=== PATIENT | female | born 1940 | race Caucasian/White ===

== ENCOUNTER → 2023-12-31 11:26 | Outpatient (REF) | payer OTHER, SELFPAY | LOC: WDC 11:26 | PROVIDERS: ATTENDING PHYSICIAN Nurse Practitioner Family; FAMILY PHYSICIAN Student in an Organized Health Care Education/Training Program | DX: Z12.31 Encounter for screening mammogram for malignant neoplasm of breast (principal) | CPT/HCPCS: 77063; 77067 ==

== ENCOUNTER 2024-08-18 21:58 | Emergency (ER) | payer OTHER, SELFPAY ==
[2024-08-18 22:27] VITALS: BP 147/78
--- NOTE | 2024-08-19 00:57 | ED.SKININJ ---
HPI-Injury
General
Chief Complaint: Bite
Source: patient
Exam Limitations: none
Time Seen by Provider: 08/19/24 01:02
Nursing documentation reviewed up to this point in time: agreed with
History of Present Illness-Injury
Initial Injury comments:
84 y/o F with h/o htn
no h/o DM
here with L lower leg redness, slight warmth from cat bite this morning
pt's own cat was upset that pt did not feed her and bit her L leg
pt developed redness and some swelling an dpain as the day went on
the cat is vaccinated
pt's tetanus was 2 years ago
Review of Systems
Review of Systems
Allergies reviewed?: Yes
All Other Systems: Not applicable
Phy Exam
Physical Exam
Physical Exam:
GENERAL: Alert , in no apparent distress, comfortable at rest
HEAD: NCAT
CV: 2+ DP PULSES B/L
NEUROLOGICAL: Alert and oriented, no focal neuro deficits, , 5/5 strength, sensation intact, ambulation slight limp right leg
SKIN: Warm and dry, 2 puncture wounds scabbed over on L lower leg with surroudning erythema approx 10 cmaround the wounds
no extension past ankle
MUSCULOSKELETAL: lower leg bites, cellulitis
mild STS
compartment soft
normal knee and ankle joints
redness is Less than half the lowr extremity
PSYCH: Normal and appropriate interaction.
Course
Orders/Labs/Results
Orders:
Orders
08/19/24 01:00
IV Insert/Care/Rem.- Treatment PRN
08/19/24 01:11
Complete Blood Count/With Diff Urgent
Comprehensive Metabolic Panel Urgent
08/19/24 01:49
Ampicillin/Sulbactam 3 G [Unasyn] 3 gm 0.9% Sodium Chloride 100 ml [Nss] 100 ml IV NOW
Abnormal Lab Results
08/19/24
01:11
WBC 13.7 H 10^3/uL
(4.8-10.8)
Abs Immat Gran (auto) 0.1 H 10^3/uL
(0-0.05)
Absolute Neuts (auto) 10.6 H 10^3/uL
(1.4-6.5)
Absolute Monos (auto) 1.2 H 10^3/uL
(0.1-0.6)
Neutrophils % 77.5 H %
(42.2-75.2)
Lymphocytes % 10.1 L %
(20.5-51.1)
Glucose 123 H mg/dl
(70-99)
08/19/24 01:11
08/19/24 01:11
Vital Signs
Initial and Last Documented VS:
Initial Vital Signs
Temp Pulse Resp BP Pulse Ox
98.4 F 76 16 147/78 100
08/18/24 22:27 08/18/24 22:27 08/18/24 22:27 08/18/24 22:27 08/18/24 22:27
Last Documented Vital Signs
Temp Pulse Resp BP Pulse Ox
98.4 F 84 16 150/76 99
08/18/24 22:27 08/19/24 01:15 08/19/24 01:15 08/19/24 01:15 08/19/24 01:15
MDM/Problems Addressed
Differential Diagnosis Includes:
cellulitis, bite
MDM/Problems Addressed:
84-year-old female not a diabetic presents with a cat bite to her left lower extremity from her own cat who is vaccinated. The redness started a few hours later and has since expanded slightly. It is contained about a third of her lower leg, there
is normal pulse and sensation distally, normal ankle and knee movement. No systemic symptoms. Appreciate her leukocytosis with a left shift. She was given a dose of IV Unasyn and discharged home with Augmentin twice daily. Counseled on return
precautions, line drawn around the cellulitis. Low threshold to return
*Critical Care Note
Total Time (30-74mins, 75-104mins- exclusive of procedures): Not Applicable
ED Attending Note
-
Portions of this chart may have been created with voice recognition software.� Occasional wrong word or��sound alike� substitutions may have occurred due to the inherent limitations of voice recognition software.
Discharge Plan
Departure
Patient Disposition: Home (Routine Discharge)
Date of Disposition: 08/19/24
Time of Disposition: 02:04
Patient with high blood pressure during this ER visit?: No
Condition: Fair
Covid-19: Not Applicable
Discharge Problem:
Cat bite
Instructions: Animal Bites (DC)
Prescriptions:
New
amoxicillin-pot clavulanate 875-125 mg tablet
1 tab PO BID Qty: 14 0RF
No Action
multivitamin [Multi-Day] 1 EACH tablet
1 ea PO DAILY
enalapril maleate 2.5 MG tablet
2.5 mg PO DAILY
pravastatin 10 MG tablet
10 mg PO HS
progesterone micronized 100 MG capsule
100 mg PO HS
conjugated estrogens [Premarin] 0.3 MG tablet
0.3 mg PO HS
cholecalciferol (vitamin D3) [Vitamin D3] 2,000 UNIT capsule
2,000 unit PO DAILY
psyllium husk (aspartame) [Metamucil Fiber Singles] 1 PACKET powder in packet
1 packet PO HS
polyethylene glycol 3350 [Miralax] 119 GM powder
119 gm PO PRN (Reason: constipation)
Patient Comments:
confirmed by pt
sennosides [senna] 1 TABLET tablet
2 tab PO BID 0RF
acetaminophen 325 MG tablet
650 mg PO Q4HWA 0RF
prednisone 20 MG tablet
20 mg PO ONCE Qty: 3 0RF
Rx Instructions:
2 tabs 07/05/17, 1 tab 07/06, then stop
magnesium hydroxide 30 ML suspension
30 ml PO DAILYPRN PRN (Reason: constipation) 0RF
aspirin 325 MG tablet,delayed release (DR/EC)
325 mg PO DAILY 0RF
docusate sodium 100 MG capsule
100 mg PO BID 0RF
metoprolol succinate 25 MG tablet extended release 24 hr
25 mg PO DAILY 0RF
oxycodone 5 MG tablet
5 mg PO Q4HPRN PRN (Reason: moderate-severe pain) Qty: 90 0RF
Rx Instructions:
dx milli
1-2 tabs
hydrochlorothiazide 25 MG tablet
25 mg PO DAILY Qty: 0 0RF
Rx Instructions:
resume in 2 days
Referrals:
Sheela Al MD [Family Provider] - Follow up in 2-3 days
Activity Restrictions/Additional Instructions:
KEEP YOUR LEG ELEVATED FOR A DAY OR TWO TO HELP WITH HEALING
TAKE AUGMENTIN TWICE A DAY FOR7 DAYS
YOU MAY NEED TO TAKE A PROBIOTIC WHILE ON THIS MEDICATION
WATCH THE REDNESS: RETURN FOR STREAKING OUT SIDE THE LINE ( YOU CAN GIVE THE ANTIBIOTICS A DAY OR TWO TO WORK IF IT IS MINIMALLY OUTSIDE THE LINE).
RETURN FOR FEVER, WORSE PAIN, WORSE STREAKING REDNESS, WORSE SWELLING ETC.
OTHEWRISE SEE YOUR DOCTOR THIS WEEK
Interventions
Interventions:
*Risk Screen - Suicide Last Done: 08/18/24 22:27
*General Assessment Last Done: 08/19/24 00:48
*Neglect/Abuse Screening Last Done: 08/18/24 22:27
ED- Fall Risk Assessment Last Done: 08/19/24 00:48
*ED COVID-19 Vaccine History Last Done: 08/19/24 00:48
ED-Skin Assessment Last Done: 08/19/24 00:48
Discharge Date and Time
Print Language: ARGENTINE
[2024-08-19 01:15] VITALS: BP 150/76
[2024-08-19 01:17] VITALS: BMI 22.9
[2024-08-19 01:35] LABS: % Basophils 0.7 % (0-2); % Eosinophils 2.3 % (0-6); % Immature Granulocytes 0.4 % (0-0.5); % Lymphocytes 10.1 % (20.5-51.1); % Neutrophils 77.5 % (42.2-75.2); Absolute Basophils 0.1 10^3/uL (0-0.2); Absolute Eosinophils 0.3 10^3/uL (0-0.7); Absolute Immature Granulocytes 0.1 10^3/uL (0-0.05); Absolute Lymphocytes 1.4 10^3/uL (1.2-3.4); Absolute Monocytes 1.2 10^3/uL (0.1-0.6); Absolute Neutrophils 10.6 10^3/uL (1.4-6.5); Hematocrit 39.4 % (37.0-47.0); Hemoglobin 13.5 g/dL (12.0-16.0); Mean Corp Hgb Conc. 34.3 g/dL (33.0-37.0); Mean Corpuscular Hgb 30.9 pg (27.0-31.0); Mean Corpuscular Volume 90.2 fL (81.0-99.0); Mean Platelet Volume 9.6 fL (7.4-10.4); Nucleated Red Blood Cells % 0 %; Platelet Count 268 10^3/uL (130-400); Red Blood Cell Count 4.37 10^6/uL (4.20-5.40); Red Cell Dist. Width 13.3 % (11.5-14.5); White Blood Cell Count 13.7 10^3/uL (4.8-10.8)
[2024-08-19 01:48] LABS: ALT (SGPT) 23 U/L (0-35); AST (SGOT) 25 U/L (14-36); Albumin 4.4 g/dl (3.5-5.0); Alkaline Phosphatase 55 U/L (38-126); Blood Urea Nitrogen 17 mg/dl (7-17); Carbon Dioxide 23 mmol/L (22-30); Chloride 103 mmol/L (98-107); Estimated Creatinine Clearance 44 ml/min; Glucose 123 mg/dl (70-99); Potassium 4.2 mmol/L (3.5-5.1); Sodium 139 mmol/L (135-145); Total Bilirubin 0.5 mg/dl (0.2-1.3); eGFR > 60.00
[2024-08-19] MEDS: UNASYN IV (02:03)
[2024-08-19 02:45] VITALS: BP 121/63
== END 2024-08-19 02:45 | disposition home or self-care (01) ==
LOC: EMR 21:58
PROVIDERS: EMERGENCY PHYSICIAN Emergency Medicine; FAMILY PHYSICIAN Student in an Organized Health Care Education/Training Program
DX: S81.852A Open bite, left lower leg, initial encounter (principal); W55.01XA Bitten by cat, initial encounter; I10 Essential (primary) hypertension
CPT/HCPCS: 99283; 96365; 80053; 85025

== ENCOUNTER → 2024-08-27 13:08 | Outpatient (REF) | payer OTHER, SELFPAY | LOC: HWRAD 13:08 | PROVIDERS: ATTENDING PHYSICIAN Internal Medicine; FAMILY PHYSICIAN Student in an Organized Health Care Education/Training Program | DX: L03.116 Cellulitis of left lower limb (principal); W55.01XD Bitten by cat, subsequent encounter | CPT/HCPCS: 76882 ==

== ENCOUNTER → 2025-01-05 11:14 | Outpatient (REF) | payer OTHER, SELFPAY | LOC: WDC 11:14 | PROVIDERS: ATTENDING PHYSICIAN Nurse Practitioner Family; FAMILY PHYSICIAN Student in an Organized Health Care Education/Training Program | DX: Z12.31 Encounter for screening mammogram for malignant neoplasm of breast (principal) | CPT/HCPCS: 77063; 77067 ==

== ENCOUNTER → 2025-10-01 09:29 | Outpatient (REF) | payer OTHER, SELFPAY | LOC: RAD 09:29 | PROVIDERS: ATTENDING PHYSICIAN Student in an Organized Health Care Education/Training Program | DX: N95.9 Unspecified menopausal and perimenopausal disorder (principal); Z91.81 History of falling | CPT/HCPCS: 77080 ==